=== PATIENT | male | born 1955 | race Caucasian/White ===

== ENCOUNTER 2024-11-16 06:27 | Outpatient (CLI) | payer MEDICARE, BC, SELFPAY ==
--- NOTE | 2024-11-16 08:25 | P.ANES_ITS ---
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
--- NOTE | 2024-11-16 08:25 | W.ANESCHARGE ---
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
== END 2024-11-16 06:28 | disposition home or self-care (01) ==
LOC: OP CLINIC 06:28
PROVIDERS: Referring Provider Internal Medicine; Visit Provider Surgery
DX: Z12.11 Encounter for screening for malignant neoplasm of colon (principal); Z86.0100 Personal history of colon polyps, unspecified; D12.0 Benign neoplasm of cecum; D12.3 Benign neoplasm of transverse colon
CPT/HCPCS: 00811; 45385; 88305; J2704

== ENCOUNTER 2024-12-27 10:00 | Outpatient (CLI) | payer MEDICARE, BC, SELFPAY ==
--- NOTE | 2024-12-27 10:15 | MR_ITS ---
[address] [address] Phone:?[phone] Fax:?[phone] Referring Physician Information: Víctor Salguero M.D. [address] [place] [id number] Phone:?[phone] Fax:?[phone] Patient:Marilin Elliott D.O.B:?1955 Sex:?Male Phone:?[phone] [facility] MRN:[id number] Exam Date:?12/27/2024 EXAM: MRI of the RIGHT KNEE without contrast CLINICAL: Right knee pain. Evaluate for ACL tear. COMPARISONS: X-rays 12/15/2024. TECHNICAL: Multiplanar multisequence MRI of the right knee was obtained. SEDATION: None. CONTRAST: None. FINDINGS: Evaluation of the obtained sequences is relatively limited by prominent artifact. Ligaments: ACL: Intact and unremarkable. PCL: Intact and unremarkable. MCL: Intact and unremarkable. LCL: Intact and unremarkable. Posterolateral corner: The popliteus tendon, distal biceps femoris tendon, distal iliotibial band, and the popliteofibular ligament appear intact. Posteromedial corner: Semimembranosus, pes anserine tendons and posterior oblique ligament appear intact. Extensor mechanism: Patellar tendon: Intact, without tendinopathy. Quadriceps tendon: Intact, without tendinopathy. Retinacula: Medial and lateral retinacula are intact. Fat pads: Unremarkable infrapatellar Hoffa's, quadriceps and prefemoral fat pads. Patellofemoral joint: Patella: There is mild chondral heterogeneity and surface irregularity/fissuring involving the patella. Trochlea: No significant chondromalacia. Medial compartment: Medial meniscus: No evidence of discrete meniscal tear or meniscal displacement. Medial cartilage: There is a segment of high-grade chondral loss involving the peripheral weightbearing medial femoral condyle measuring approximately 7 mm in transverse dimension on coronal series 8 images 16-18. Medial tibial plateau cartilage is maintained. Lateral compartment: Lateral meniscus: No evidence of discrete meniscal tear or meniscal displacement. Lateral cartilage: No significant chondromalacia. Knee joint: Effusion: Physiologic right knee effusion. Intra-articular bodies:?No convincing bodies identified. Popliteal cyst: None. Bones: No suspicious bone marrow signal alteration or fracture line. IMPRESSION: 1. Evaluation of the obtained sequences is relatively limited by prominent artifact. No evidence of meniscal tear, ligamentous injury or fracture as visualized. 2. Approximately 7 mm segment of high-grade chondral loss involving the peripheral weightbearing medial femoral condyle. Mild patellar chondromalacia as above. JCZ Electronically signed on 12/27/2024 12:25:00 PM by Aba Solano D.O.
== END 2024-12-27 10:01 | disposition home or self-care (01) ==
LOC: MRI 10:04
PROVIDERS: PCP Internal Medicine; Visit Provider Orthopaedic Surgery
DX: M25.561 Pain in right knee (principal); M22.41 Chondromalacia patellae, right knee
CPT/HCPCS: 73721